=== PATIENT | female | born 1990 | race African-American/Black ===

== ENCOUNTER 2020-06-25 00:50 | Emergency (ER) | payer OTHER ==
[~2020-06-25] VITALS: Ht 165.1 cm; Wt 73.5 kg
[2020-06-25 01:42] LABS: ABSOLUTE NEUTROPHILS 5.8 thou/uL (1.4-8.2); BASOPHILS 0.4 % (0.0-2.0); EOSINOPHILS 3.7 % (0.0-3.0); HEMATOCRIT 23.2 % (37.0-47.0); HEMOGLOBIN 7.4 gm/dL (12.0-15.0); LYMPHOCYTES 10.3 % (24.0-44.0); MCH 31.3 pg (26.0-34.0); MCHC 31.8 g/dL (28.0-37.0); MCV 98.4 fL (80.0-100.0); MONOCYTES 7.2 % (1.0-8.0); PLATELET COUNT 106 thou/uL (150-400); POLYS 78.4 % (36.0-66.0); RBC 2.35 mil/uL (4.20-5.00); RDW 19.5 % (10.5-14.5); WBC 7.4 thou/uL (4.0-11.0)
[2020-06-25 01:49] LABS: CALCIUM 8.3 mg/dL (8.5-10.1); CREATININE 15.6 mg/dL (0.6-1.0); POTASSIUM 4.8 mmol/L (3.5-5.1)
[2020-06-25 01:55] LABS: ALBUMIN 3.3 g/dL (3.4-5.0); DIRECT BILIRUBIN 0.2 mg/dL (<0.1-0.2); TOTAL BILIRUBIN 0.5 mg/dL (0.2-1.0); TOTAL PROTEIN 6.7 g/dL (6.4-8.2)
[2020-06-25 06:02] VITALS: BP 187/131
== END 2020-06-25 06:17 | disposition home or self-care (01) ==
LOC: ER 00:50
PROVIDERS: Emergency Medicine
DX: R10.9 Unspecified abdominal pain (principal); I10 Essential (primary) hypertension; Z88.1 Allergy status to other antibiotic agents; Z88.8 Allergy status to other drugs, medicaments and biological substances